=== PATIENT | male | born 1965 | race Caucasian/White ===

== ENCOUNTER 2019-07-21 22:46 | Emergency (ER) | payer OTHER ==
--- NOTE | 2019-07-21 23:19 | RAD ---
3 views right shoulder: 07/21/2019 COMPARISON: None HISTORY: Trauma FINDINGS: No fracture or dislocation. No radiopaque foreign body or subcutaneous gas. There is mild d egenerative change involving the right acromioclavicular joint. IMPRESSION: No acute findings.
[2019-07-21] MEDS ORDERED: Ketorolac Tromethamine 30 MG/ML VIAL ONE (23:24)
[2019-07-21 23:28] LABS: #Basophils 0.1 thou/uL (0.0-0.2); #Eosinphils 0.4 thou/uL (0.0-0.7); #Lymphocytes 2.6 thou/uL (1.20-3.40); #Monocytes 1.3 thou/uL (0.11-0.59); #Neutrophils 8.6 thou/uL (1.40-6.50); %Basophils 1.1 % (0.0-1.0); %Eosinophils 3.1 % (0.0-10.0); %Lymphocytes 19.9 % (21.0-51.0); %Monocytes 10.3 % (0.0-10.0); %Neutrophils 65.6 % (42.0-75.0); Hemoglobin 13.6 g/dL (14.0-18.0); Mean Corpuscular HGB CONC 30.9 g/dL (32.0-36.0); Mean Corpuscular Hemoglobin 26.4 pg (27.0-31.0); Mean Corpuscular Volume 85.5 fL (78.0-98.0); Platelet Count 274 thou/uL (130-400); RBC Distribution Width 12.3 % (11.5-14.5); Red Blood Cell (RBC) Count 5.13 mill/uL (4.70-6.10)
[2019-07-21 23:31] LABS: INR-International Normal Ratio 0.9; PTT 25.9 SEC (22.9-36.1); Prothrombin Time 12.4 SEC (12.0-14.7)
[2019-07-21 23:40] LABS: ALT (SGPT) 52 U/L (8-55); AST (SGOT) 47 U/L (5-34); Albumin 4.1 g/dL (3.5-5.0); Alkaline Phosphatase 54 U/L (40-110); Anion Gap 13 mmol/L (10-20); BUN (Urea Nitrogen) 20 mg/dL (8.4-25.7); Bilirubin, Total 0.5 mg/dL (0.2-1.2); Calc. Creatinine Clearance 0 mL/min (70-130); Calcium 9.3 mg/dL (7.8-10.44); Carbon Dioxide 26 mmol/L (22-29); Chloride 101 mmol/L (98-107); Estimated GFR-MDRD 51; Glucose 116 mg/dL (70-105); Potassium 3.9 mmol/L (3.5-5.1); Protein, Total 7.1 g/dL (6.0-8.3); Sodium 136 mmol/L (136-145)
== END 2019-07-22 00:12 | disposition home or self-care (01) ==
LOC: MADERS 22:46
DX: S40.021A Contusion of right upper arm, initial encounter (principal); R00.1 Bradycardia, unspecified; M25.511 Pain in right shoulder; M25.411 Effusion, right shoulder; F32.9 Major depressive disorder, single episode, unspecified; V80.010A Animal-rider injured by fall from or being thrown from horse in noncollision accident, initial encounter
CPT/HCPCS: 80053; 85025; 85610; 85730; 93005; J1885

== ENCOUNTER 2019-09-27 08:12 | Outpatient (CLI) | payer OTHER ==
[2019-09-27 08:49] LABS: ALT (SGPT) 23 U/L (8-55); AST (SGOT) 19 U/L (5-34); Albumin 4.1 g/dL (3.5-5.0); Alkaline Phosphatase 61 U/L (40-110); Anion Gap 14 mmol/L (10-20); BUN (Urea Nitrogen) 22 mg/dL (8.4-25.7); Bilirubin, Total 0.5 mg/dL (0.2-1.2); Calc. Creatinine Clearance 0 mL/min (70-130); Calcium 9.5 mg/dL (7.8-10.44); Carbon Dioxide 24 mmol/L (22-29); Cardiac Risk 5.5 (Less than 4.5); Chloride 106 mmol/L (98-107); Cholesterol 242 mg/dl (< 200 Desired); Estimated GFR-MDRD 77; Globulin 3.4 g/dL (2.4-3.5); Glucose 121 mg/dL (70-105); HDL Cholesterol 44 mg/dL (>60 Neg Risk); LDL Cholesterol, Calculated 164 mg/dL; Potassium 4.8 mmol/L (3.5-5.1); Protein, Total 7.5 g/dL (6.0-8.3); Sodium 139 mmol/L (136-145); Triglycerides 171 mg/dL (Less than 150)
[2019-09-27 18:21] LABS: Hemoglobin A1c 6.6 % (4.0-6.0)
[2019-09-27 20:57] LABS: Albumin (w/Testosterone Panel) 4.2 g/dL
[2019-09-27 21:23] LABS: Sex Hormone Binding Globulin 22.1 nmol/L (11-78); Testosterone, Free 95.7 pg/mL (47-244); Testosterone, Total 378.5 ng/dL (221-716)
== END 2019-09-27 08:13 | disposition home or self-care (01) ==
LOC: MADLAB 08:12
PROVIDERS: ATTEND Family Medicine
DX: Z13.9 Encounter for screening, unspecified (principal); E78.5 Hyperlipidemia, unspecified
CPT/HCPCS: 36415; 80053; 80061; 83036; 84270; 84403